=== PATIENT | male | born 1965 | race Caucasian/White ===

== ENCOUNTER 2017-07-02 16:14 | Inpatient (IN) | payer MEDICARE, BC ==
[~2017-07-02] VITALS: Ht 172.7 cm; Wt 78.9 kg
[2017-07-02] VITALS (11 sets, daily range): BP systolic 138–225; BP diastolic 73–94
[~2017-07-02 16:14] MED LIST: CADUET 10 MG-21 EACH PO; HYDRALAZINE 10M10 MG PO; LANTUS SUBQ; NEPHROCAPS SOFT1 CAP PO; NEXIUM40 MG PO; NOVOLOG100 UNIT/1 SUBQ; PHOSLO667 M1 PO
[2017-07-02] MEDS ORDERED: COZAAR 25 MG TA25 M1 PO (16:26)
[2017-07-02] MEDS ORDERED: ASPIR 8181 MG PO (16:26)
[2017-07-02] MEDS ORDERED: NEPHRO-VITE RX1 TA1 PO (16:27)
[2017-07-02] MEDS ORDERED: ATORVASTATIN CA40 MG PO (16:27)
[2017-07-02] MEDS ORDERED: NEXIUM40 MG PO (16:27)
[2017-07-02] MEDS ORDERED: CLONIDINE HCL0.3 M3 PO (16:27)
[2017-07-02] MEDS ORDERED: HUMALOG100 UNIT/2 SUBQ (16:28)
[2017-07-02] MEDS ORDERED: GABAPENTIN 100100 MG PO (16:28)
[2017-07-02] MEDS ORDERED: LOPERAMIDE 2 MG2 M1 PO (16:28)
[2017-07-02] MEDS ORDERED: PHOSLO667 MG PO (16:28)
[2017-07-02] MEDS ORDERED: COREG12.5 MG PO (16:28)
[2017-07-02] MEDS ORDERED: LANTUS100 UNIT/M SUBQ (16:29)
[2017-07-02] MEDS ORDERED: PLAVIX 300 MG300 M1 PO (16:29)
[2017-07-02 16:49] LABS: HEMATOCRIT 40.1 % (42.0-52.0); HEMOGLOBIN 12.7 gm/dL (14.0-18.0); MCH 31.6 pg (26.0-34.0); MCHC 31.8 g/dL (28.0-37.0); MCV 99.3 fL (80.0-100.0); MPV 9.3 fl. (7.2-11.1); NUCLEATED RBCS 0 /100WBC; PLATELET COUNT* 280 thou/uL (150-400); RBC 4.03 mil/uL (4.50-6.00); RDW-CV 17.5 % (10.5-14.5); WBC 13.4 thou/uL (4.0-11.0)
[2017-07-02 17:01] LABS: ALBUMIN 3.8 g/dL (3.4-5.0); CALCIUM 7.6 mg/dL (8.5-10.1); CREATININE 8.6 mg/dL (0.6-1.3); TOTAL BILIRUBIN 0.7 mg/dL (<0.1-1.0); TOTAL PROTEIN 8.3 g/dL (6.4-8.2)
[2017-07-02 17:13] LABS: POTASSIUM 6.5 mmol/L (3.5-5.1)
[2017-07-02 17:26] LABS: ABSOLUTE EOSINOPHILS 0.1 thou/uL (0.0-0.7); ABSOLUTE LYMPHOCYTES 1.9 thou/uL (0.8-5.3); ABSOLUTE MONOCYTES 1.5 thou/uL (0.0-1.2); ABSOLUTE NEUTROPHILS 9.9 thou/uL (1.6-8.1); ANISOCYTOSIS 1+; PLATELET ESTIMATE ADEQUATE
[2017-07-02 18:01] LABS: BE -1.4 mmol/L (-2 to +3); HCO3 24.6 mmol/L (22.0-26.0); PCO2 46.2 mmHg (35.0-45.0); pH 7.344 (7.340-7.450)
[2017-07-02 18:04] LABS: PO2 52.6 mmHg (75.0-100.0)
[2017-07-03] VITALS (21 sets, daily range): BP systolic 98–173; BP diastolic 57–89
[2017-07-03 04:34] LABS: HEMATOCRIT 35.7 % (42.0-52.0); MCH 30.6 pg (26.0-34.0); MCHC 33.6 g/dL (28.0-37.0); MPV 8.3 fl. (7.2-11.1); RBC 3.92 mil/uL (4.50-6.00); RDW-CV 16.7 % (10.5-14.5); WBC 16.2 thou/uL (4.0-11.0)
[2017-07-03 04:51] LABS: ALBUMIN 3.3 g/dL (3.4-5.0); CALCIUM 6.8 mg/dL (8.5-10.1); CREATININE 9.1 mg/dL (0.6-1.3); MAGNESIUM 2.2 mg/dL (1.8-2.4); TOTAL BILIRUBIN 0.5 mg/dL (<0.1-1.0); TOTAL PROTEIN 6.8 g/dL (6.4-8.2)
[2017-07-03 04:59] LABS: POTASSIUM 4.1 mmol/L (3.5-5.1)
--- NOTE | 2017-07-03 12:24 | EKG ---
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 : 1965 Requested By: Gisselle Bazzi Order Number: [id number] MD: Jeremiah Rasmussen Measurements Intervals [place] Rate: 108 P: 138 NE: 180 QRS: -10 QRSD: 113 T: 31 QT: 372 QTc: 499 Interpretive Statements Sinus or ectopic atrial tachycardia Left atrial enlargement Borderline intraventricular conduction delay Low voltage, extremity leads Nonspecific repol abnormality, diffuse leads Baseline wander in lead(s) I,II,aVR No previous ECG available for comparison Electronically Signed On 07-03-2017 12:24:40 COMBINATION MAN by Jeremiah Rasmussen [email or web address] <ELECTRONICALLY SIGNED> By: Jeremiah Rasmussen MD, FAC 07/03/17 1224 1713 1713 Jeremiah Rasmussen MD, [facility] /EPI
--- NOTE | 2017-07-03 16:53 | CON ---
[address] [address] CONSULTATION Name: ELIZABETH LOZA Room: [address] IN [facility]#: [id number] Admission: 07/02/17 Attend Phys: Dc Jernigan, Discharge: Date of : 65 Report #: [id number] THIS REPORT FOR: //name// CC: FAM physician/PCP Dc Jernigan DATE OF SERVICE: 07/03/2017 CONSULTING PHYSICIAN: Dr. Jernigan. REASON FOR CONSULTATION: End-stage renal disease for hemodialysis. REASON FOR ADMISSION: Very high blood glucose. HISTORY OF PRESENT ILLNESS: This is a pleasant 52-year-old male who has past medical history of end-stage renal disease, on hemodialysis Tuesday, Tuesday and Tuesday at [facility]; type diabetic; hypertension and other medical problems, who ran out of his insulin needles 1 day prior to admission and hence his blood glucose was very high. His blood glucose was running at 900s and his potassium was 6.5. He was started on insulin drip and his blood glucose was better this morning and it is running in 200s and his potassium has come down to 4.1. The patient received his last dialysis on Tuesday and will be due for dialysis tomorrow. Currently, he is resting, feels better, in no acute distress at all. REVIEW OF SYSTEMS: The patient's blood glucose is running very high and patient was feeling weak, but currently he is feeling better. Otherwise, 10-point review of systems is negative. PAST MEDICAL HISTORY AND PAST SURGICAL HISTORY: Includes: 1. Type diabetes mellitus. 2. Hyperlipidemia. 3. Tobacco dependency. 4. Hypertension. 5. End-stage renal disease, on hemodialysis every Tuesday, Tuesday, Tuesday. 6. Right upper extremity revision with a PTFE graft. CURRENT HOME MEDICATIONS: Reviewed. CURRENT MEDICATIONS: Reviewed. ALLERGIES: Reviewed. FAMILY HISTORY: Noncontributory. SOCIAL HISTORY: No history of alcohol use, recreational use [place] [address] CONSULTATION Name: ELIZABETH LOZA Room: [address]#: [id number] Admission: 07/02/17 Attend Phys: Dc Jernigan, Discharge: Date of : 65 Report #: [id number] use or smoking. PHYSICAL EXAMINATION: VITAL SIGNS: Blood pressure is 161/81, pulse ox is 92% on 2 liters nasal cannula. Respiratory rate is 16, pulse rate is 88, temperature 36.7. GENERAL: He is awake and alert and oriented x 3, no acute distress. HEAD, EYES, EARS, NOSE AND THROAT: Mucous membranes are moist. NECK: No JVD. LUNGS: Clear to auscultation bilaterally. No crackles or wheezing. CARDIOVASCULAR: S1, S2 normal; no murmurs. ABDOMEN: Soft, nontender, nondistended. Bowel sounds are present. EXTREMITIES: Symmetrical extremities, no edema. Right upper arm AV graft has a good bruit and good thrill. NEUROLOGIC FUNCTION: Gross neurologic function is intact. PSYCHIATRIC: Mood and affect seems to be normal. LABORATORY DATA: Hemoglobin is 12.0, WBC 16.2. Sodium 136, potassium 4.1. BUN 52. Other labs were reviewed. IMAGING: Chest x-ray, abdominal CT were reviewed. ASSESSMENT: 1. End-stage renal disease, on hemodialysis. 2. Hypertension. 3. Hyperglycemia hyperosmolar nonketotic coma. 4. Bilateral multiple cysts. 5. Multiple renal cysts. PLAN: The patient will be dialyzed according to Tuesday, Tuesday, Tuesday schedule. He will be scheduled for dialysis tomorrow. No acute need for dialysis today. Blood pressure should be better controlled after resuming home medications. Blood glucose is getting better, primary team is managing. 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 Thank you for this consultation. We will continue to follow along with you for his dialysis needs. <ELECTRONICALLY SIGNED> By: Majo Ceron MD 07/03/17 1653 0750 [id number] Ceron MD /nt
[2017-07-04] VITALS (14 sets, daily range): BP systolic 99–143; BP diastolic 50–88
[2017-07-04 03:03] LABS: HEMATOCRIT 34.7 % (42.0-52.0); HEMOGLOBIN 12.1 gm/dL (14.0-18.0); MCHC 34.8 g/dL (28.0-37.0); MCV 91.9 fL (80.0-100.0); MPV 8.3 fl. (7.2-11.1); RBC 3.77 mil/uL (4.50-6.00); RDW-CV 17.1 % (10.5-14.5); WBC 16.9 thou/uL (4.0-11.0)
[2017-07-04 03:14] LABS: ALBUMIN 2.8 g/dL (3.4-5.0); CALCIUM 6.3 mg/dL (8.5-10.1); POTASSIUM 4.5 mmol/L (3.5-5.1); TOTAL BILIRUBIN 0.7 mg/dL (<0.1-1.0); TOTAL PROTEIN 6.5 g/dL (6.4-8.2)
[2017-07-05 00:07] VITALS: BP 91/55
[2017-07-05 04:05] VITALS: BP 117/60
[2017-07-05 08:00] VITALS: BP 144/84
[2017-07-05 13:30] VITALS: BP 119/72
[2017-07-05 16:00] VITALS: BP 134/70
--- NOTE | 2017-07-05 18:21 | CON ---
[address] [address] CONSULTATION Name: ELIZABETH LOZA Room: [address] IN [facility]#: [id number] Admission: 07/02/17 Attend Phys: Dc Jernigan, Discharge: Date of : 65 Report #: [id number] THIS REPORT FOR: //name// CC: RADHA physician/PCP Dc Jernigan DICTATED BY: Gena VALDES DATE OF SERVICE: 07/04/2017 REASON FOR CONSULTATION: Left foot wound. HISTORY OF PRESENT ILLNESS: The patient is a pleasant 52-year-old male who is well known to our practice with a history of end-stage renal disease as well as peripheral artery disease. He has end-stage renal disease and is on chronic hemodialysis via a right upper extremity arteriovenous graft. He had a fistula created in [address] Danish Crocker. His fistula was revised to a graft in June [address] Kim. He last underwent a fistulogram in August [address] Gupta. He reports he has been dialyzing well since that time, denies any difficulty with access, but he does report some occasional right handed numbness that seems to continue to worsen. He was admitted to the hospital this admission with complaints of nausea, vomiting as well as bleeding from his left foot. He is a type 1 diabetic, had ran out of his insulin needles, so had not taken any of his insulin. Currently, he complains of lower abdominal pain that he describes as across the bilateral lower quadrants. He does complain of some pain in the left heel. He reports he developed some callus with a small wound over the last couple of weeks. He does have a history of bilateral transmetatarsal amputations by an orthopedic surgeon at [facility]. He also reports a history of a right lower extremity revascularization also at [facility]. He was discharged from the wound center at [place] in 2015, states he has not followed up at [facility] since that time. We have been asked to evaluate the patient and give our opinion regarding his current left heel wound. He reports he did vomit once earlier today, denies any current nausea or vomiting. PAST MEDICAL HISTORY: 1. Diabetes mellitus, type 1. 2. Hyperlipidemia. 3. Tobaccoism. 4. Hypertension. 5. End-stage renal disease. 6. Hyperlipidemia. 7. Peripheral artery disease. PAST SURGICAL HISTORY: 1. Excision of a sebaceous cyst from the head on 01/20/[address] [place] [address] CONSULTATION Name: ELIZABETH LOZA Room: [address] IN [facility].#: [id number] Admission: 07/02/17 Attend Phys: Dc Jernigan, Discharge: Date of : 65 Report #: [id number] 2. Right upper extremity brachiocephalic arteriovenous fistula creation in September 0308/[address] Crocker. 3. Revision of his fistula to a PTFE graft on 07/25/[address] Kim. 4. Multiple fistulograms, most recently in January 2016. ALLERGIES: No known drug allergies. HOME MEDICATIONS: 1. Caduet 10/20 mg 1 tablet daily. 2. Apresoline 25 mg 3 times daily. 3. Lantus insulin 20 units subcutaneously at bedtime. 4. NovoLog insulin 4 units subcutaneously with meals. 5. Cozaar 25 mg daily. 6. Aspirin 81 mg daily. 7. Nephro-Rdorigue 1 tablet daily. 8. Lipitor 40 mg daily. 9. Nexium 40 mg daily. 10. Clonidine 0.3 mg daily. 11. Coreg 6.25 mg twice daily. 12. Neurontin 100 mg 3 times daily. 13. Humalog per sliding scale. 14. PhosLo 667 mg daily. 15. Imodium 2 mg as needed for diarrhea. 16. Plavix daily. SOCIAL HISTORY: He is a former smoker, denies any alcohol or illicit drug use. FAMILY HISTORY: Significant for diabetes mellitus. REVIEW OF SYSTEMS: A 12-point review of systems has been reviewed and is negative except for the above mentioned in the history of present illness. PHYSICAL EXAMINATION: VITAL SIGNS: Temperature 37.0, heart rate 102, respiratory rate 12, blood pressure 99/63, oxygen saturation 98% on room air. GENERAL: Alert and oriented, in no acute distress. HEENT: Head is normocephalic, atraumatic. NECK: Supple, without jugular venous distention or carotid bruit. HEART: Tachycardia, no murmur noted. CHEST: Lungs are diminished, symmetrical expansion, no distress. ABDOMEN: Hypoactive bowel sounds, mild lower abdominal tenderness. EXTREMITIES: Palpable bilateral radial, femoral and dorsalis pedis pulses, dopplerable bilateral posterior tibialis pulses. He has bilateral well-healed transmetatarsal amputations. There is a small fissure on the medial aspect of the right heel, no periwound erythema noted. There is a callus on the medial aspect of the left heel with some reddish purple discoloration [place] [address] CONSULTATION Name: ELIZABETH LOZA Room: [address] IN [facility]#: [id number] Admission: 07/02/17 Attend Phys: Dc Jernigan, Discharge: Date of : 65 Report #: [id number] This area is exquisitely tender to palpation, no open wound or drainage noted NEUROLOGIC: Alert and oriented with no focal neurologic deficits. LABORATORY DATA: Hemoglobin 12.1, hematocrit 34.7, white blood cell count 16.9, platelets 201. Sodium 133, potassium 4.5, chloride 91, CO2 of 25, BUN 61, creatinine 11, glucose is 197. ASSESSMENT AND PLAN: 1. Diabetic foot wounds. He has a small fissure on the right heel with a callus with concern for developing wound on the left medial heel. We will obtain x-rays of the left heel to evaluate for any bony involvement or any abscess. 2. Peripheral artery disease with a history of right lower extremity revascularization. He has strong palpable bilateral dorsalis pedis pulses with dopplerable posterior tibialis pulses. No revascularization is currently indicated. 3. Hyperglycemia in the environment of diabetes mellitus, he had not been taking his insulin prior to his admission as he ran out of syringes. 4. Abdominal pain. Gastroenterology is following. 5. End-stage renal disease, on chronic hemodialysis on Mondays, Wednesdays and Fridays via his right upper extremity arteriovenous graft. He does report some numbness in the right hand. 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 His hand is pink, warm, neuromotor intact. He may benefit from a fistulogram at a later date. We thank you for the opportunity to participate in the care of the patient. Please feel free to contact our office with any questions or concerns. <ELECTRONICALLY SIGNED> By: Ramy Tracy MD 07/05/17 1821 1610 2014Ramy Tracy MD /nt
[2017-07-05 20:00] VITALS: BP 130/70
[2017-07-06 03:00] VITALS: BP 173/75
[2017-07-06 03:47] LABS: ALBUMIN 3.1 g/dL (3.4-5.0); CALCIUM 6.9 mg/dL (8.5-10.1); CREATININE 10.3 mg/dL (0.6-1.3); MAGNESIUM 2.1 mg/dL (1.8-2.4); TOTAL BILIRUBIN 0.7 mg/dL (<0.1-1.0); TOTAL PROTEIN 6.7 g/dL (6.4-8.2)
[2017-07-06 03:55] LABS: HEMATOCRIT 32.4 % (42.0-52.0); HEMOGLOBIN 10.7 gm/dL (14.0-18.0); MCH 31.2 pg (26.0-34.0); MCHC 33.1 g/dL (28.0-37.0); MCV 94.4 fL (80.0-100.0); MPV 9.5 fl. (7.2-11.1); RBC 3.43 mil/uL (4.50-6.00); RDW-CV 16.7 % (10.5-14.5)
[2017-07-06 04:10] LABS: POTASSIUM 6.6 mmol/L (3.5-5.1)
[2017-07-06 08:00] VITALS: BP 153/68
--- NOTE | 2017-07-06 10:57 | EKG ---
[place] [address] ELECTROCARDIOGRAM REPORT Name: ELIZABETH LOZA Room: [address] ADM IN [facility].#: [id number] Admission: 07/02/17 Attend Phys: Dc Jernigan, Discharge: Date of : 65 Report #: [id number] THIS REPORT FOR: //name// [facility] Test Date: 2017-07-06 Test Time: 10:18:57 Pat Name: ELIZABETH LOZA Department: Room: [address] Gender: M Head Porter: : 1965 Requested By: Nadine Campo Order Number: [id number] Reading MD: Satish Hurtado Measurements Intervals [place] Rate: 97 P: 60 GA: 169 QRS: -22 QRSD: 105 T: 52 QT: 389 QTc: 494 Interpretive Statements Sinus rhythm Probable left atrial enlargement Borderline left axis deviation Borderline low voltage, extremity leads Borderline prolonged QT interval Compared to ECG 07/02/2017 17:13:58 rate slowed Electronically Signed On 07-06-2017 10:56:52 FLAME HARDENING MACHINE OPERATOR by Satish Hurtado [email or web address] <ELECTRONICALLY SIGNED> By: Satish Hurtado MD, [facility] 07/06/17 1056 1018 1018 Satish Hurtado MD, [facility] /EPI
[2017-07-06 20:00] VITALS: BP 109/63
[2017-07-07 03:55] LABS: HEMATOCRIT 34.9 % (42.0-52.0); HEMOGLOBIN 11.4 gm/dL (14.0-18.0); MCH 30.4 pg (26.0-34.0); MCHC 32.7 g/dL (28.0-37.0); MPV 8.9 fl. (7.2-11.1); RBC 3.75 mil/uL (4.50-6.00); RDW-CV 16.9 % (10.5-14.5)
[2017-07-07 04:39] LABS: ALBUMIN 2.9 g/dL (3.4-5.0); CALCIUM 7.5 mg/dL (8.5-10.1); POTASSIUM 5.2 mmol/L (3.5-5.1); TOTAL BILIRUBIN 0.4 mg/dL (<0.1-1.0); TOTAL PROTEIN 6.7 g/dL (6.4-8.2)
[2017-07-07 04:40] LABS: CREATININE 6.7 mg/dL (0.6-1.3)
[2017-07-07 06:12] VITALS: BP 177/78
[2017-07-07 08:05] VITALS: BP 136/82
[2017-07-07] MEDS ORDERED: TRAMADOL 50 MG50 MG PO (09:39)
[2017-07-07] MEDS ORDERED: NOVOLOG100 UNIT/1 SUBQ (09:39)
[2017-07-07] MEDS ORDERED: REGLAN 10 MG TA10 MG PO (09:39)
[2017-07-07] MEDS ORDERED: COLACE 100 MG100 MG PO (09:39)
[2017-07-07] MEDS ORDERED: HUMALOG100 UNIT/2 SUBQ (09:39)
[2017-07-07] MEDS ORDERED: LANTUS SUBQ (09:39)
[2017-07-07] MEDS ORDERED: MIRALAX17 GM PO (09:39)
[2017-07-07 10:39] VITALS: BP 110/65
[2017-07-07 12:08] VITALS: BP 110/65
[2017-07-07] MEDS ORDERED: PHOSLO667 MG PO (12:18)
[2017-07-07] MEDS ORDERED: LANTUSSOLASTAR SUBQ (12:21)
[2017-07-07 14:46] VITALS: BP 110/65
--- NOTE | 2017-07-07 14:51 | CON ---
[address] [address] CONSULTATION Name: ELIZABETH LOZA Room: [address] IN [facility]#: [id number] Admission: 07/02/17 Attend Phys: Dc Jernigan, Discharge: 07/07/17 Date of : 65 Report #: [id number] THIS REPORT FOR: //name// CC: RADHA physician/PCP Dc Jernigan DATE OF SERVICE: 07/04/2017 ADDENDUM The patient with history of esophagitis and a small hiatal hernia who presents with abdominal pain and leukocytosis. He also has a history of end-stage liver disease and gets dialyzed routinely. We will await the records from [facility], continue to monitor closely and may consider endoscopic evaluation based on the records we receive. <ELECTRONICALLY SIGNED> By: Francia Hillman MD 07/07/17 1451 1526 2103Francia Hillman MD /nt
--- NOTE | 2017-07-07 14:51 | CON ---
[address] [address] CONSULTATION Name: ELIZABETH LOZA Room: [address] IN .#: [id number] Admission: 07/02/17 Attend Phys: Dc Jernigan, Discharge: 07/07/17 Date of : 65 Report #: [id number] THIS REPORT FOR: //name// CC: RADHA physician/PCP Dc Jernigan DICTATED BY: Hannah JUAREZP DATE OF SERVICE: 07/04/2017 The patient does not have a PCP. Please note at the time of this dictation, the patient was seen and physically examined by myself. REASON FOR CONSULTATION: Abdominal pain. HISTORY OF PRESENT ILLNESS: This is a 52-year-old male who presented to the Emergency Room with having left foot bleeding as well as abdominal pain associated with some nausea and vomiting, which he had had ongoing for about 6 hours. The patient is a type 1 diabetic and he ran out of his needles yesterday, so he had not been able to have any insulin. Upon arrival to the ER, the patient's blood sugar was 987. Once that was improved while he was on an insulin drip, his nausea and vomiting subsided; however, he still complains of abdominal discomfort. The patient did have an EGD back in 2014 that showed esophagitis grade A, 2 cm hiatal hernia and he has never noted to have a colonoscopy by us; however, the patient states he has had recent studies done, he thinks at [facility] and we will need to try to obtain. The patient states his bowels go daily, but they are hard and dry and he only goes small amounts at a time. He has not noticed any bright red blood or any melena at this time. ALLERGIES: No known drug allergies. MEDICATIONS: From home include Caduet, Apresoline, Lantus, NovoLog, Cozaar, aspirin, Nephro-Rodrigue, Lipitor, Nexium, clonidine, Coreg, Neurontin, Humalog, PhosLo, Imodium and Plavix. PAST MEDICAL HISTORY: Diabetes, hyperlipidemia, hypertension, end-stage renal disease. PAST SURGICAL HISTORY: Cholecystectomy. FAMILY HISTORY: Negative for any GI or female cancers. SOCIAL HISTORY: Past use of alcohol, no recreational drug use and no tobacco use. REVIEW OF SYSTEMS: Twelve-point review of [place] [address] CONSULTATION Name: ELIZABETH LOZA Room: [address]#: [id number] Admission: 07/02/17 Attend Phys: Dc Jernigan, Discharge: 07/07/17 Date of : 65 Report #: [id number] except what is mentioned in the HPI. PHYSICAL EXAMINATION: VITAL SIGNS: Temperature 36.8, pulse 113, respirations 15, blood pressure 128/80. HEART: Regular rate and rhythm. LUNGS: Clear. ABDOMEN: Soft, positive bowel sounds in all 4 quadrants with diffuse tenderness noted throughout. LABORATORY DATA: Hemoglobin 12.1, hematocrit 34.7, white count is 16.9, platelets is 201. Sodium 133, potassium 4.5, chloride 91, CO2 of 25, BUN 61, creatinine is 11, GFR is nonexistent 7. CT, LFTs were completely normal. CT of the abdomen and pelvis showed diffuse fatty infiltrations, otherwise absent gallbladder. Chest x-ray negative. IMPRESSION: 1. Abdominal pain, generalized. 2. Constipation. 3. Diffuse fatty infiltration of the liver. 4. Leukocytosis. 5. Chronic kidney disease stage 5. Dialysis Tuesday, Tuesday, Tuesday. 6. Diabetic ketoacidosis. 7. Anticoagulant therapy, Plavix. PLAN: 1. Records, [facility]. 2. Abdominal x-ray. 3. Colace b.i.d. 4. If all is negative, consider EGD: Once records have been reviewed. Thank you for allowing us to participate in this patient's care. Please do not hesitate to call with any questions in regard to this consult. <ELECTRONICALLY SIGNED> By: Francia Hillman MD 07/07/17 1451 1202 1231Francia Hillman MD /nt
== END 2017-07-07 14:48 | disposition home or self-care (01) | DRG 637 ==
LOC: M.ERS 16:14 → M.ICU 17:16 → M.ORTHSURG 17:16 → M.TBA-ER 17:16 → M.ICU 18:22 → M.ORTHSURG 07-05 14:17
PROVIDERS: Internal Medicine; Physician Assistant; ADMIT Family Medicine
PROC: 5A1D70Z Performance of Urinary Filtration, Intermittent, Less than 6 Hours Per Day (ICD-10-PCS; principal; 2017-07-04)
DX: E11.00 Type 2 diabetes mellitus with hyperosmolarity without nonketotic hyperglycemic-hyperosmolar coma (NKHHC) (principal); N18.6 End stage renal disease; I12.0 Hypertensive chronic kidney disease with stage 5 chronic kidney disease or end stage renal disease; I16.1 Hypertensive emergency; E87.1 Hypo-osmolality and hyponatremia; E78.5 Hyperlipidemia, unspecified; E11.22 Type 2 diabetes mellitus with diabetic chronic kidney disease; N28.1 Cyst of kidney, acquired; K59.00 Constipation, unspecified; E11.51 Type 2 diabetes mellitus with diabetic peripheral angiopathy without gangrene; F17.210 Nicotine dependence, cigarettes, uncomplicated; K02.9 Dental caries, unspecified; K76.0 Fatty (change of) liver, not elsewhere classified; E83.51 Hypocalcemia; E87.5 Hyperkalemia; Z99.2 Dependence on renal dialysis; Z79.4 Long term (current) use of insulin; Z79.899 Other long term (current) drug therapy; Z90.49 Acquired absence of other specified parts of digestive tract; Z79.01 Long term (current) use of anticoagulants; Z83.3 Family history of diabetes mellitus; Z91.19 Patient's noncompliance with other medical treatment and regimen

== ENCOUNTER → 2017-07-14 | Outpatient (CLI) | payer MEDICARE, BC ==
[~2017-07-14] MED LIST changes: +ASPIR 8181 MG PO; +ATORVASTATIN CA40 MG PO; +AZO STANDARD95 MG PO; +CLONIDINE HCL0.3 M3 PO; +COLACE 100 MG100 MG PO; +COREG12.5 MG PO; +COZAAR 25 MG TA25 M1 PO; +GABAPENTIN 100100 MG PO; +HUMALOG100 UNIT/2 SUBQ; +HYDROCODONE-AP1 EAC6 PO; +LANTUS100 UNIT/M SUBQ; +LANTUSSOLASTAR SUBQ; +LOPERAMIDE 2 MG2 M1 PO; +MIRALAX17 GM PO; +NEPHRO-VITE RX1 TA1 PO; +PERCOCET 10-321 EACH PO; +PHOSLO667 MG PO; +PLAVIX 300 MG300 M1 PO; +REGLAN 10 MG TA10 MG PO; +TRAMADOL 50 MG50 MG PO; +ZOFRAN ODT4 MG DISSOLVE; +ZPAK PO
== END ==
LOC: M.WC 08:00
DX: E11.621 Type 2 diabetes mellitus with foot ulcer (principal); L97.421 Non-pressure chronic ulcer of left heel and midfoot limited to breakdown of skin; E11.51 Type 2 diabetes mellitus with diabetic peripheral angiopathy without gangrene; E11.22 Type 2 diabetes mellitus with diabetic chronic kidney disease; I12.0 Hypertensive chronic kidney disease with stage 5 chronic kidney disease or end stage renal disease; N18.6 End stage renal disease; E78.2 Mixed hyperlipidemia; E78.5 Hyperlipidemia, unspecified; K21.9 Gastro-esophageal reflux disease without esophagitis; Z87.891 Personal history of nicotine dependence

== ENCOUNTER → 2017-07-21 | Outpatient (CLI) | payer MEDICARE, BC | LOC: M.WC 03:53 | DX: E11.621 Type 2 diabetes mellitus with foot ulcer (principal); L97.421 Non-pressure chronic ulcer of left heel and midfoot limited to breakdown of skin; E11.51 Type 2 diabetes mellitus with diabetic peripheral angiopathy without gangrene; E11.22 Type 2 diabetes mellitus with diabetic chronic kidney disease; I12.0 Hypertensive chronic kidney disease with stage 5 chronic kidney disease or end stage renal disease; N18.6 End stage renal disease; E78.2 Mixed hyperlipidemia; L84 Corns and callosities; K21.9 Gastro-esophageal reflux disease without esophagitis; Z68.33 Body mass index [BMI] 33.0-33.9, adult; Z87.891 Personal history of nicotine dependence ==

== ENCOUNTER → 2017-07-28 | Outpatient (CLI) | payer MEDICARE, BC | LOC: M.WC 01:22 | DX: E11.621 Type 2 diabetes mellitus with foot ulcer (principal); L97.421 Non-pressure chronic ulcer of left heel and midfoot limited to breakdown of skin; E11.51 Type 2 diabetes mellitus with diabetic peripheral angiopathy without gangrene; E78.2 Mixed hyperlipidemia; K21.9 Gastro-esophageal reflux disease without esophagitis; Z68.33 Body mass index [BMI] 33.0-33.9, adult; E11.22 Type 2 diabetes mellitus with diabetic chronic kidney disease; I12.0 Hypertensive chronic kidney disease with stage 5 chronic kidney disease or end stage renal disease; N18.6 End stage renal disease; Z99.2 Dependence on renal dialysis; Z87.891 Personal history of nicotine dependence ==

== ENCOUNTER → 2017-08-04 | Outpatient (CLI) | payer MEDICARE, BC | LOC: M.WC 01:36 | DX: E11.621 Type 2 diabetes mellitus with foot ulcer (principal); L97.421 Non-pressure chronic ulcer of left heel and midfoot limited to breakdown of skin; E11.51 Type 2 diabetes mellitus with diabetic peripheral angiopathy without gangrene; E78.2 Mixed hyperlipidemia; K21.9 Gastro-esophageal reflux disease without esophagitis; Z68.33 Body mass index [BMI] 33.0-33.9, adult; E11.22 Type 2 diabetes mellitus with diabetic chronic kidney disease; I12.0 Hypertensive chronic kidney disease with stage 5 chronic kidney disease or end stage renal disease; N18.6 End stage renal disease; Z99.2 Dependence on renal dialysis; Z87.891 Personal history of nicotine dependence ==

== ENCOUNTER → 2017-08-11 | Outpatient (CLI) | payer MEDICARE, BC | LOC: M.WC 01:31 | DX: E11.621 Type 2 diabetes mellitus with foot ulcer (principal); L97.521 Non-pressure chronic ulcer of other part of left foot limited to breakdown of skin; E11.51 Type 2 diabetes mellitus with diabetic peripheral angiopathy without gangrene; E11.22 Type 2 diabetes mellitus with diabetic chronic kidney disease; I12.0 Hypertensive chronic kidney disease with stage 5 chronic kidney disease or end stage renal disease; N18.6 End stage renal disease; E78.2 Mixed hyperlipidemia; K21.9 Gastro-esophageal reflux disease without esophagitis; Z68.33 Body mass index [BMI] 33.0-33.9, adult; Z87.891 Personal history of nicotine dependence ==

== ENCOUNTER → 2017-08-18 | Outpatient (CLI) | payer MEDICARE, BC ==
[2017-08-18 10:33] LABS: HEMATOCRIT 37.4 % (42.0-52.0); HEMOGLOBIN 12.8 gm/dL (14.0-18.0); MCH 31.4 pg (26.0-34.0); MCHC 34.2 g/dL (28.0-37.0); MPV 8.4 fl. (7.2-11.1); RBC 4.06 mil/uL (4.50-6.00); RDW-CV 16.3 % (10.5-14.5); WBC 10.6 thou/uL (4.0-11.0)
[2017-08-18 10:43] LABS: ALBUMIN 3.7 g/dL (3.4-5.0); CALCIUM 8.9 mg/dL (8.5-10.1); CREATININE 7.5 mg/dL (0.6-1.3); POTASSIUM 4.8 mmol/L (3.5-5.1); TOTAL BILIRUBIN 0.4 mg/dL (<0.1-1.0); TOTAL PROTEIN 8.2 g/dL (6.4-8.2)
[2017-08-19 02:10] LABS: GLYCOHEMOGLOBIN (HGB A1C) 7.2 % (4.8-5.6)
== END ==
LOC: M.WC 03:29
PROVIDERS: Family Medicine
DX: E11.621 Type 2 diabetes mellitus with foot ulcer (principal); L97.421 Non-pressure chronic ulcer of left heel and midfoot limited to breakdown of skin; E11.51 Type 2 diabetes mellitus with diabetic peripheral angiopathy without gangrene; E78.2 Mixed hyperlipidemia; K21.9 Gastro-esophageal reflux disease without esophagitis; Z68.33 Body mass index [BMI] 33.0-33.9, adult; E11.22 Type 2 diabetes mellitus with diabetic chronic kidney disease; I12.0 Hypertensive chronic kidney disease with stage 5 chronic kidney disease or end stage renal disease; N18.6 End stage renal disease; Z99.2 Dependence on renal dialysis; Z87.891 Personal history of nicotine dependence

== ENCOUNTER → 2017-08-25 | Outpatient (CLI) | payer MEDICARE, BC | LOC: M.WC 01:50 | DX: E11.621 Type 2 diabetes mellitus with foot ulcer (principal); L97.421 Non-pressure chronic ulcer of left heel and midfoot limited to breakdown of skin; E11.51 Type 2 diabetes mellitus with diabetic peripheral angiopathy without gangrene; K21.9 Gastro-esophageal reflux disease without esophagitis; E78.2 Mixed hyperlipidemia; E11.22 Type 2 diabetes mellitus with diabetic chronic kidney disease; I12.0 Hypertensive chronic kidney disease with stage 5 chronic kidney disease or end stage renal disease; N18.6 End stage renal disease; Z99.2 Dependence on renal dialysis; Z68.33 Body mass index [BMI] 33.0-33.9, adult; Z87.891 Personal history of nicotine dependence ==

== ENCOUNTER → 2017-09-02 | Outpatient (CLI) | payer MEDICARE, BC | LOC: M.WC 09-01 02:30 | DX: E11.621 Type 2 diabetes mellitus with foot ulcer (principal); L97.421 Non-pressure chronic ulcer of left heel and midfoot limited to breakdown of skin; E11.51 Type 2 diabetes mellitus with diabetic peripheral angiopathy without gangrene; E78.2 Mixed hyperlipidemia; K21.9 Gastro-esophageal reflux disease without esophagitis; E11.22 Type 2 diabetes mellitus with diabetic chronic kidney disease; I12.0 Hypertensive chronic kidney disease with stage 5 chronic kidney disease or end stage renal disease; N18.6 End stage renal disease; Z68.33 Body mass index [BMI] 33.0-33.9, adult; Z99.2 Dependence on renal dialysis; Z87.891 Personal history of nicotine dependence ==

== ENCOUNTER → 2017-09-08 | Outpatient (CLI) | payer MEDICARE, BC | LOC: M.WC 01:30 | DX: E11.621 Type 2 diabetes mellitus with foot ulcer (principal); L97.421 Non-pressure chronic ulcer of left heel and midfoot limited to breakdown of skin; E11.51 Type 2 diabetes mellitus with diabetic peripheral angiopathy without gangrene; E11.22 Type 2 diabetes mellitus with diabetic chronic kidney disease; I12.0 Hypertensive chronic kidney disease with stage 5 chronic kidney disease or end stage renal disease; N18.6 End stage renal disease; K21.9 Gastro-esophageal reflux disease without esophagitis; E78.2 Mixed hyperlipidemia; Z68.33 Body mass index [BMI] 33.0-33.9, adult; Z87.891 Personal history of nicotine dependence ==

== ENCOUNTER → 2017-09-15 | Outpatient (CLI) | payer MEDICARE, BC | LOC: M.WC 04:59 | DX: E11.621 Type 2 diabetes mellitus with foot ulcer (principal); L97.421 Non-pressure chronic ulcer of left heel and midfoot limited to breakdown of skin; E11.51 Type 2 diabetes mellitus with diabetic peripheral angiopathy without gangrene; E78.2 Mixed hyperlipidemia; K21.9 Gastro-esophageal reflux disease without esophagitis; E11.22 Type 2 diabetes mellitus with diabetic chronic kidney disease; I12.0 Hypertensive chronic kidney disease with stage 5 chronic kidney disease or end stage renal disease; N18.6 End stage renal disease; Z99.2 Dependence on renal dialysis; Z68.33 Body mass index [BMI] 33.0-33.9, adult; Z87.891 Personal history of nicotine dependence ==

== ENCOUNTER → 2017-09-22 | Outpatient (CLI) | payer MEDICARE, BC | LOC: M.WC 04:37 | DX: E11.621 Type 2 diabetes mellitus with foot ulcer (principal); L97.421 Non-pressure chronic ulcer of left heel and midfoot limited to breakdown of skin; E11.51 Type 2 diabetes mellitus with diabetic peripheral angiopathy without gangrene; E78.2 Mixed hyperlipidemia; K21.9 Gastro-esophageal reflux disease without esophagitis; E11.22 Type 2 diabetes mellitus with diabetic chronic kidney disease; I12.0 Hypertensive chronic kidney disease with stage 5 chronic kidney disease or end stage renal disease; N18.6 End stage renal disease; Z99.2 Dependence on renal dialysis; Z68.33 Body mass index [BMI] 33.0-33.9, adult; Z87.891 Personal history of nicotine dependence; Z89.422 Acquired absence of other left toe(s); Z89.421 Acquired absence of other right toe(s) ==

== ENCOUNTER → 2017-09-29 | Outpatient (CLI) | payer MEDICARE, BC | LOC: M.WC 00:56 | DX: E11.621 Type 2 diabetes mellitus with foot ulcer (principal); L97.421 Non-pressure chronic ulcer of left heel and midfoot limited to breakdown of skin; E11.51 Type 2 diabetes mellitus with diabetic peripheral angiopathy without gangrene; E11.22 Type 2 diabetes mellitus with diabetic chronic kidney disease; I12.0 Hypertensive chronic kidney disease with stage 5 chronic kidney disease or end stage renal disease; N18.6 End stage renal disease; E78.2 Mixed hyperlipidemia; K21.9 Gastro-esophageal reflux disease without esophagitis; L84 Corns and callosities; Z87.891 Personal history of nicotine dependence; Z68.33 Body mass index [BMI] 33.0-33.9, adult ==

== ENCOUNTER → 2017-10-06 | Outpatient (CLI) | payer MEDICARE, BC | LOC: M.WC 02:22 | DX: E11.621 Type 2 diabetes mellitus with foot ulcer (principal); L97.421 Non-pressure chronic ulcer of left heel and midfoot limited to breakdown of skin; E11.51 Type 2 diabetes mellitus with diabetic peripheral angiopathy without gangrene; E11.22 Type 2 diabetes mellitus with diabetic chronic kidney disease; I12.0 Hypertensive chronic kidney disease with stage 5 chronic kidney disease or end stage renal disease; N18.6 End stage renal disease; L84 Corns and callosities; E78.2 Mixed hyperlipidemia; K21.9 Gastro-esophageal reflux disease without esophagitis; Z68.33 Body mass index [BMI] 33.0-33.9, adult; Z87.891 Personal history of nicotine dependence ==

== ENCOUNTER → 2017-10-13 | Outpatient (CLI) | payer MEDICARE, BC | LOC: M.WC 01:04 | DX: E11.621 Type 2 diabetes mellitus with foot ulcer (principal); L97.421 Non-pressure chronic ulcer of left heel and midfoot limited to breakdown of skin; E11.51 Type 2 diabetes mellitus with diabetic peripheral angiopathy without gangrene; E78.2 Mixed hyperlipidemia; K21.9 Gastro-esophageal reflux disease without esophagitis; E11.22 Type 2 diabetes mellitus with diabetic chronic kidney disease; I12.0 Hypertensive chronic kidney disease with stage 5 chronic kidney disease or end stage renal disease; N18.6 End stage renal disease; Z99.2 Dependence on renal dialysis; Z87.891 Personal history of nicotine dependence; Z68.33 Body mass index [BMI] 33.0-33.9, adult ==

== ENCOUNTER → 2017-10-20 | Outpatient (CLI) | payer MEDICARE, BC | LOC: M.WC 03:53 | DX: E11.621 Type 2 diabetes mellitus with foot ulcer (principal); L97.421 Non-pressure chronic ulcer of left heel and midfoot limited to breakdown of skin; E11.51 Type 2 diabetes mellitus with diabetic peripheral angiopathy without gangrene; E11.22 Type 2 diabetes mellitus with diabetic chronic kidney disease; I12.0 Hypertensive chronic kidney disease with stage 5 chronic kidney disease or end stage renal disease; N18.6 End stage renal disease; K21.9 Gastro-esophageal reflux disease without esophagitis; E78.5 Hyperlipidemia, unspecified; Z87.891 Personal history of nicotine dependence; Z68.33 Body mass index [BMI] 33.0-33.9, adult ==

== ENCOUNTER → 2017-10-27 | Outpatient (CLI) | payer MEDICARE, BC | LOC: M.WC 03:21 | DX: E11.621 Type 2 diabetes mellitus with foot ulcer (principal); L97.421 Non-pressure chronic ulcer of left heel and midfoot limited to breakdown of skin; E11.51 Type 2 diabetes mellitus with diabetic peripheral angiopathy without gangrene; E78.2 Mixed hyperlipidemia; K21.9 Gastro-esophageal reflux disease without esophagitis; E11.22 Type 2 diabetes mellitus with diabetic chronic kidney disease; I12.0 Hypertensive chronic kidney disease with stage 5 chronic kidney disease or end stage renal disease; N18.6 End stage renal disease; Z99.2 Dependence on renal dialysis; Z68.33 Body mass index [BMI] 33.0-33.9, adult; Z87.891 Personal history of nicotine dependence ==

== ENCOUNTER 2017-11-25 19:31 | Emergency (ER) | payer MEDICARE, BC ==
[~2017-11-25] VITALS: Ht 172.7 cm; Wt 72.6 kg
[~2017-11-25 19:31] MED LIST changes: -AZO STANDARD95 MG PO; -HYDROCODONE-AP1 EAC6 PO; -PERCOCET 10-321 EACH PO; -ZOFRAN ODT4 MG DISSOLVE; -ZPAK PO
[2017-11-25] MEDS ORDERED: AZO STANDARD95 MG PO (20:19)
[2017-11-25] MEDS ORDERED: PERCOCET 10-321 EACH PO (20:22)
[2017-11-25 20:49] VITALS: BP 130/78
== END 2017-11-25 20:50 | disposition home or self-care (01) ==
LOC: M.ERS 19:31
DX: N32.89 Other specified disorders of bladder (principal); E78.5 Hyperlipidemia, unspecified; I12.0 Hypertensive chronic kidney disease with stage 5 chronic kidney disease or end stage renal disease; E11.22 Type 2 diabetes mellitus with diabetic chronic kidney disease; N18.6 End stage renal disease; F17.200 Nicotine dependence, unspecified, uncomplicated; Z99.2 Dependence on renal dialysis; Z79.4 Long term (current) use of insulin; Z85.51 Personal history of malignant neoplasm of bladder

== ENCOUNTER 2018-01-07 15:27 | Inpatient (IN) | payer MEDICARE, BC ==
[~2018-01-07] VITALS: Ht 152.4 cm; Wt 77.1 kg
[2018-01-07] VITALS (9 sets, daily range): BP systolic 126–166; BP diastolic 51–86
--- NOTE | ~2018-01-07 | CON ---
[address] [address] CONSULTATION Name: ELIZABETH LOZA Room: [address] IN [facility].#: [id number] Admission: 01/07/18 Attend Phys: Dc Jernigan, Discharge: Date of : 65 Report #: [id number] THIS REPORT FOR: //name// CC: RADHA physician/PCP Dc Jernigan REASON FOR CONSULTATION: End-stage renal disease. HISTORY OF PRESENT ILLNESS: The patient is a 52-year-old male with history of end-stage renal disease, on hemodialysis on Tuesday, Tuesday, Tuesday schedule using right upper extremity AV fistula at [facility], history of essential hypertension, diabetes mellitus type 2, admitted after he presented with lower abdominal pain, which was rated as 8/10 x 1 day duration. No other associated symptoms. Denies any nausea, vomiting or diarrhea with his abdominal pain. No fever or chills. Found to have elevated blood glucose levels and currently in the ICU with insulin drip. We are consulted to assist with management of his electrolyte abnormalities and end-stage renal disease. Of note, he has history of recently diagnosed bladder cancer for which he had surgery done. PAST MEDICAL HISTORY: As mentioned above. In addition, he has history of type 2 diabetes, hyperlipidemia, tobacco dependency, essential hypertension, ESRD, on dialysis; history of bladder cancer as mentioned above and right upper extremity AV graft. SOCIAL HISTORY: No smoking, alcohol or illicit drug use. FAMILY HISTORY: No family history of end-stage renal disease. ALLERGIES: The patient is not allergic to any medications. REVIEW OF SYSTEMS: Twelve-point review of systems was done and pertinent positives are mentioned in the history of present illness. All other systems are negative. PHYSICAL EXAMINATION: VITAL SIGNS: He has blood pressure of 166/86, pulse rate of 110, respiratory rate of 18, temperature of 36.4, oxygen saturation is 99% on room air. GENERAL: He appears in no respiratory distress at this time. [place] conjunctivae and anicteric sclerae. HEENT: Normocephalic, atraumatic head. Pupils are equal, reactive to light. External ocular muscles are intact. NECK: No JVD. Trachea midline. LUNGS: Sounds are clear to auscultation bilaterally. No wheezing. ABDOMEN: Soft, nontender. He said that he had some tenderness yesterday. No rebound. Has positive bowel sounds. SKIN: Warm and dry. EXTREMITIES: Showed no edema. He has right [place] [address] CONSULTATION Name: ELIZABETH LOZA Room: [address]#: [id number] Admission: 01/07/18 Attend Phys: Dc Jernigan, Discharge: Date of : 65 Report #: [id number] positive thrill. NEUROLOGIC: He is alert, oriented and nonfocal. IMPRESSION: 1. End-stage renal disease on hemodialysis Tuesday, Tuesday, Tuesday schedule at [facility]. 2. Right upper extremity AV fistula. 3. Essential hypertension. 4. Diabetes mellitus type 2. 5. Hyperglycemia. 6. History of bladder cancer, status post tumor resection recently. 7. Anemia of chronic illness. 8. Leukocytosis. 9. Hyperkalemia. PLAN: Hemodialysis arrangement is made for today. We will correct hyperkalemia on dialysis. Ultrafiltration as hemodynamics allow. No Epogen as his hemoglobin is over 11. Management of hyperglycemia per primary team. Once again, thank you for the consult. By: 1136 2140Brinda Cevallos MD /nt
[~2018-01-07 15:27] MED LIST changes: +AZO STANDARD95 MG PO; +PERCOCET 10-321 EACH PO
[2018-01-07 15:58] LABS: ABSOLUTE BASOPHILS 0.1 thou/uL (0.0-0.2); ABSOLUTE EOSINOPHILS 0.3 thou/uL (0.0-0.7); ABSOLUTE LYMPHOCYTES 1.6 thou/uL (0.8-5.3); ABSOLUTE MONOCYTES 0.8 thou/uL (0.0-1.2); ABSOLUTE NEUTROPHILS 9.6 thou/uL (1.6-8.1); BASOPHILS 0.9 %; EOSINOPHILS 2.3 %; HEMATOCRIT 38.8 % (42.0-52.0); HEMOGLOBIN 12.8 gm/dL (14.0-18.0); LYMPHOCYTES 12.9 %; MCH 32.8 pg (26.0-34.0); MCHC 32.9 g/dL (28.0-37.0); MCV 99.7 fL (80.0-100.0); MONOCYTES 6.8 %; MPV 8.8 fl. (7.2-11.1); NUCLEATED RBCS 0 /100WBC; PLATELET COUNT* 265 thou/uL (150-400); POLYS 77.1 %; RBC 3.89 mil/uL (4.50-6.00); RDW-CV 16.7 % (10.5-14.5); WBC 12.5 thou/uL (4.0-11.0)
[2018-01-07 16:09] LABS: ANION GAP 9 mmol/L (7-16); BUN 45 mg/dL (7-18); CALCIUM 7.1 mg/dL (8.5-10.1); CHLORIDE 88 mmol/L (98-107); CO2 32 mmol/L (21-32); CREATININE 7.7 mg/dL (0.6-1.3); SODIUM 129 mmol/L (136-145)
[2018-01-07 16:13] LABS: ALBUMIN 3.5 g/dL (3.4-5.0); ALKALINE PHOSPHATASE 55 U/L (46-116); LIPASE 293 U/L (73-393); SGOT 17 U/L (15-37); SGPT 20 U/L (30-65); TOTAL BILIRUBIN 0.4 mg/dL (<0.1-1.0); TOTAL PROTEIN 7.9 g/dL (6.4-8.2); TROPONIN-I LEVEL <0.06 ng/mL (<0.06)
[2018-01-07 16:20] LABS: GLUCOSE 816 mg/dL (70-99)
[2018-01-07 16:59] LABS: BE -0.7 mmol/L (-2 to +3); HCO3 24.1 mmol/L (22.0-26.0); PCO2 40.5 mmHg (35.0-45.0); PO2 66.3 mmHg (75.0-100.0); pH 7.393 (7.340-7.450)
[2018-01-07 22:25] LABS: CALCIUM 6.7 mg/dL (8.5-10.1); CREATININE 8.3 mg/dL (0.6-1.3); MAGNESIUM 2.2 mg/dL (1.8-2.4); PHOSPHORUS* 6.6 mg/dL (2.5-4.9)
[2018-01-07 22:33] LABS: POTASSIUM 4.5 mmol/L (3.5-5.1)
[2018-01-08] VITALS (9 sets, daily range): BP systolic 118–147; BP diastolic 48–79
[2018-01-08 02:26] LABS: HEMATOCRIT 32.8 % (42.0-52.0); MCH 31.9 pg (26.0-34.0); MCHC 33.7 g/dL (28.0-37.0); MPV 8.4 fl. (7.2-11.1); RBC 3.46 mil/uL (4.50-6.00); RDW-CV 15.7 % (10.5-14.5); WBC 11.6 thou/uL (4.0-11.0)
[2018-01-08 02:31] LABS: MCV 94.7 fL (80.0-100.0)
[2018-01-08 02:38] LABS: ALKALINE PHOSPHATASE 43 U/L (46-116); ANION GAP 9 mmol/L (7-16); BUN 59 mg/dL (7-18); CALCIUM 6.8 mg/dL (8.5-10.1); CHLORIDE 94 mmol/L (98-107); CO2 30 mmol/L (21-32); CREATININE 8.1 mg/dL (0.6-1.3); GLUCOSE 103 mg/dL (70-99); MAGNESIUM 2.2 mg/dL (1.8-2.4); PHOSPHORUS* 7.1 mg/dL (2.5-4.9); POTASSIUM 4.5 mmol/L (3.5-5.1); SGOT 15 U/L (15-37); SGPT 17 U/L (30-65); SODIUM 133 mmol/L (136-145); TOTAL BILIRUBIN 0.4 mg/dL (<0.1-1.0); TOTAL PROTEIN 6.6 g/dL (6.4-8.2); TROPONIN-I LEVEL <0.06 ng/mL (<0.06)
[2018-01-08 06:28] LABS: CALCIUM 6.7 mg/dL (8.5-10.1); CREATININE 8.1 mg/dL (0.6-1.3); MAGNESIUM 2.1 mg/dL (1.8-2.4); PHOSPHORUS* 7.9 mg/dL (2.5-4.9); POTASSIUM 5.4 mmol/L (3.5-5.1)
[2018-01-08 10:47] LABS: ALBUMIN 2.9 g/dL (3.4-5.0); CALCIUM 6.6 mg/dL (8.5-10.1); CREATININE 8.6 mg/dL (0.6-1.3); MAGNESIUM 2.1 mg/dL (1.8-2.4); PHOSPHORUS* 7.4 mg/dL (2.5-4.9)
[2018-01-08 10:49] LABS: POTASSIUM 6.2 mmol/L (3.5-5.1)
--- NOTE | 2018-01-08 11:00 | EKG ---
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: Doyle LOPEZ : 1965 Requested By: Eric Waldron Order Number: [id number] MD: Med Degroot Measurements Intervals [place] Rate: 106 P: 64 [place]: 168 QRS: -21 QRSD: 104 T: 53 QT: 359 QTc: 477 Interpretive Statements Sinus tachycardia Probable left atrial enlargement Borderline left axis deviation Borderline low voltage, extremity leads Anteroseptal infarct, old Minimal ST elevation, inferior leads Baseline wander in lead(s) V5 Compared to ECG 07/06/2017 10:18:57 Myocardial infarct finding now present ST (T wave) deviation now present Sinus rhythm no longer present Electronically Signed On 01-08-2018 10:59:53 CDT by Med Degroot [email or web address] <ELECTRONICALLY SIGNED> By: Bryan Degroot MD, [facility] 01/08/18 1059 1551 1551 Bryan Degroot MD, [facility] /EPI
[2018-01-08 14:32] LABS: ALBUMIN 2.9 g/dL (3.4-5.0); CALCIUM 6.8 mg/dL (8.5-10.1)
[2018-01-08 14:37] LABS: CREATININE 6.4 mg/dL (0.6-1.3); POTASSIUM 4.3 mmol/L (3.5-5.1)
[2018-01-08 18:23] LABS: ALBUMIN 3.1 g/dL (3.4-5.0); CALCIUM 7.3 mg/dL (8.5-10.1); CREATININE 5.9 mg/dL (0.6-1.3); POTASSIUM 4.4 mmol/L (3.5-5.1)
[2018-01-09] VITALS: BP 83/43
[2018-01-09 04:00] VITALS: BP 104/61
[2018-01-09 05:02] LABS: HEMATOCRIT 37.8 % (42.0-52.0); HEMOGLOBIN 12.6 gm/dL (14.0-18.0); MCH 31.8 pg (26.0-34.0); MCHC 33.3 g/dL (28.0-37.0); MCV 95.5 fL (80.0-100.0); RBC 3.95 mil/uL (4.50-6.00); RDW-CV 16.3 % (10.5-14.5); WBC 9.2 thou/uL (4.0-11.0)
[2018-01-09 05:17] LABS: ALBUMIN 2.9 g/dL (3.4-5.0); CALCIUM 7.1 mg/dL (8.5-10.1); MAGNESIUM 2.2 mg/dL (1.8-2.4); POTASSIUM 4.8 mmol/L (3.5-5.1); TOTAL BILIRUBIN 0.4 mg/dL (<0.1-1.0); TOTAL PROTEIN 6.4 g/dL (6.4-8.2)
[2018-01-09 05:54] LABS: CREATININE 7.1 mg/dL (0.6-1.3)
[2018-01-09 07:30] VITALS: BP 146/86
--- NOTE | 2018-01-09 08:00 | CON ---
[address] [address] CONSULTATION Name: ELIZABETH LOZA Room: [address] IN [facility].#: [id number] Admission: 01/07/18 Attend Phys: Dc Jernigan, Discharge: Date of : 65 Report #: [id number] THIS REPORT FOR: //name// CC: FAM physician/PCP Dc Jernigan DATE OF SERVICE: 01/08/2018 ATTENDING PHYSICIAN: Dc Jernigan MD REASON FOR EVALUATION: Abdominal pain with associated diarrhea. The patient has a marked hyperglycemia, suspected infectious etiology. HISTORY OF PRESENT ILLNESS: Chart reviewed, the patient examined. This is a 52-year-old man with end-stage renal disease on hemodialysis for the last 6 years, who had acute onset of lower abdominal pain within a few hours prior to his being evaluated. Of note, he has a history of bladder cancer with resection. It is notable he has no urine output to speak of. He has had some chills and perhaps some low-grade temperature elevations, although he is not certain. He had initially a formed stool and now multiple loose stools, studies have been sent. His blood sugars were markedly elevated and went to greater than 1000 as confirmed during the early hours of the admission. Generally, situation is better at this point. Blood cultures are sterile thus far. Stool cultures are pending. He was empirically started on dose of vancomycin as well as Zosyn. CT abdomen and pelvis showed circumferential wall thickening within the bladder, which is decompressed, moderate stool within the colon, severe diffuse atherosclerotic disease. ALLERGIES: None known. CURRENT MEDICATIONS: Include insulin, folic acid, aspirin, Zosyn, carvedilol, ondansetron, fentanyl as needed. PAST MEDICAL HISTORY: Diabetes mellitus type 2 diagnosed in 1997, he has been on dialysis for last 6 years due to end-stage renal disease, hyperlipidemia, hypertension, bladder cancer post resection. SOCIAL HISTORY: A pack a day for the last 35 years. No ethanol. No illicit drug use. FAMILY HISTORY: Noncontributory. REVIEW OF SYSTEMS: He denies significant pulmonary-related complaints at this point. PHYSICAL EXAMINATION: [place] [address] CONSULTATION Name: ELIZABETH LOZA Room: [address]#: [id number] Admission: 01/07/18 Attend Phys: Dc Jernigan, Discharge: Date of : 65 Report #: [id number] GENERAL: Appears chronically ill, undernourished. He is lucid. VITAL SIGNS: Temperature 98.4, pulse 86, respiration 21, blood pressure 155/74. SKIN: Warm, dry, no rashes. HEENT: Unremarkable. NECK: Supple. LUNGS: Generally clear to auscultation. HEART: Regular. ABDOMEN: Mildly tender. There are no peritoneal signs. GENITOURINARY AND RECTAL: Deferred. LABORATORY DATA: Initial CBC: White count of 12.5, H and H 12.8/38.8, platelets of 265. Electrolytes: Sodium 129, potassium 6.0, chloride 88, bicarbonate is 32, anion gap of 9, BUN and creatinine 45 and 7.7. Initial glucose was 816, repeat was 1123. CT abdomen and pelvis as described above. ABGs; pH 7.393, pCO2 of 40.5, pO2 of 66.3 on room air, lactic acid 1.6. Blood cultures are sterile thus far. Plain film of the abdomen showed no acute process. ASSESSMENT: Marked hyperglycemia in a patient with longstanding diabetes mellitus certainly raises question of some sort of a stressor such as an infection. Abdominal imaging has been otherwise unhelpful. We will try to collect some stool studies, although diarrhea was in the presenting factors, has developed subsequent. We will continue empiric antimicrobial therapy at this point, he is not overtly toxic, may be a self-limited issue. He is not aware of any risk factors or exposure history at this point. Continue efforts to control his blood sugar. <ELECTRONICALLY SIGNED> By: Nikko Daugherty MD 01/09/18 0800 1112 31Joeleni Daugherty MD /nt
[2018-01-09 13:09] LABS: HEPATITIS B SURFACE AG Negative (Negative)
[2018-01-09 14:46] VITALS: BP 146/86
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
== END 2018-01-09 15:07 | disposition home or self-care (01) | DRG 371 ==
LOC: M.ERS 15:27 → M.TBA-ER 16:53 → M.2W 16:53 → M.ICU 17:39 → M.2W 01-08 17:51
PROVIDERS: Family Medicine; Internal Medicine Nephrology; ADMIT Family Medicine
DX: A04.9 Bacterial intestinal infection, unspecified (principal); N18.6 End stage renal disease; I12.0 Hypertensive chronic kidney disease with stage 5 chronic kidney disease or end stage renal disease; E87.1 Hypo-osmolality and hyponatremia; E72.51 Non-ketotic hyperglycinemia; E78.5 Hyperlipidemia, unspecified; E87.5 Hyperkalemia; F17.210 Nicotine dependence, cigarettes, uncomplicated; I77.0 Arteriovenous fistula, acquired; E10.22 Type 1 diabetes mellitus with diabetic chronic kidney disease; D63.8 Anemia in other chronic diseases classified elsewhere; D72.829 Elevated white blood cell count, unspecified; K59.00 Constipation, unspecified; J44.9 Chronic obstructive pulmonary disease, unspecified; Z86.010 Personal history of colon polyps; Z79.4 Long term (current) use of insulin; Z85.51 Personal history of malignant neoplasm of bladder; Z82.49 Family history of ischemic heart disease and other diseases of the circulatory system; Z79.899 Other long term (current) drug therapy

== ENCOUNTER 2018-01-14 06:48 | Inpatient (IN) | payer MEDICARE, BC ==
[~2018-01-14] VITALS: Ht 172.7 cm; Wt 93.4 kg
[2018-01-14 06:59] VITALS: BP 171/90
[2018-01-14 07:29] LABS: ABSOLUTE BASOPHILS 0.1 thou/uL (0.0-0.2); ABSOLUTE EOSINOPHILS 0.3 thou/uL (0.0-0.7); ABSOLUTE MONOCYTES 1.2 thou/uL (0.0-1.2); ABSOLUTE NEUTROPHILS 11.2 thou/uL (1.6-8.1); BASOPHILS 0.4 %; EOSINOPHILS 1.9 %; HEMATOCRIT 36.5 % (42.0-52.0); LYMPHOCYTES 13.6 %; MCH 32.2 pg (26.0-34.0); MCHC 32.9 g/dL (28.0-37.0); MCV 97.7 fL (80.0-100.0); MONOCYTES 7.9 %; MPV 9.2 fl. (7.2-11.1); NUCLEATED RBCS 0 /100WBC; PLATELET COUNT* 215 thou/uL (150-400); POLYS 76.2 %; RBC 3.73 mil/uL (4.50-6.00); RDW-CV 16.1 % (10.5-14.5); WBC 14.7 thou/uL (4.0-11.0)
[2018-01-14 07:37] LABS: ANION GAP 9 mmol/L (7-16); BUN 75 mg/dL (7-18); CALCIUM 6.9 mg/dL (8.5-10.1); CHLORIDE 93 mmol/L (98-107); CO2 31 mmol/L (21-32); CREATININE 10.1 mg/dL (0.6-1.3); GLUCOSE 211 mg/dL (70-99); SODIUM 133 mmol/L (136-145)
[2018-01-14 07:42] LABS: POTASSIUM 7.5 mmol/L (3.5-5.1)
[2018-01-14 07:57] LABS: ALBUMIN 3.3 g/dL (3.4-5.0); ALKALINE PHOSPHATASE 51 U/L (46-116); CK-MB MASS 5.7 ng/mL (<0.5-3.6); NT-PRO BRAIN NAT PEPTIDE 11235 pg/mL (<300); SGOT 17 U/L (15-37); SGPT 20 U/L (30-65); TOTAL BILIRUBIN 0.5 mg/dL (<0.1-1.0); TOTAL PROTEIN 7.8 g/dL (6.4-8.2); TROPONIN-I LEVEL <0.06 ng/mL (<0.06)
[2018-01-14 10:15] VITALS: BP 150/50
[2018-01-14 16:33] VITALS: BP 156/83
[2018-01-14 19:30] VITALS: BP 146/86
[2018-01-15] VITALS: BP 122/75
[2018-01-15 05:20] LABS: ABSOLUTE BASOPHILS 0.1 thou/uL (0.0-0.2); ABSOLUTE EOSINOPHILS 0.4 thou/uL (0.0-0.7); ABSOLUTE LYMPHOCYTES 2.1 thou/uL (0.8-5.3); BASOPHILS 0.7 %; EOSINOPHILS 3.4 %; HEMOGLOBIN 13.5 gm/dL (14.0-18.0); MCH 32.5 pg (26.0-34.0); MCHC 33.6 g/dL (28.0-37.0); MCV 96.7 fL (80.0-100.0); MONOCYTES 9.6 %; MPV 9.4 fl. (7.2-11.1); NUCLEATED RBCS 0 /100WBC; PLATELET COUNT* 177 thou/uL (150-400); POLYS 66.3 %; RBC 4.14 mil/uL (4.50-6.00); RDW-CV 16.3 % (10.5-14.5); WBC 10.6 thou/uL (4.0-11.0)
[2018-01-15 06:01] LABS: ALBUMIN 3.2 g/dL (3.4-5.0); CALCIUM 7.7 mg/dL (8.5-10.1); TOTAL BILIRUBIN 0.5 mg/dL (<0.1-1.0); TOTAL PROTEIN 7.2 g/dL (6.4-8.2)
[2018-01-15 06:03] LABS: CREATININE 7.2 mg/dL (0.6-1.3); POTASSIUM 5.5 mmol/L (3.5-5.1)
[2018-01-15 08:00] VITALS: BP 144/88
--- NOTE | 2018-01-15 08:55 | CON ---
[address] [address] CONSULTATION Name: ELIZABETH LOZA Room: [address] IN [facility]#: [id number] Admission: 01/14/18 Attend Phys: Oscar Miller Discharge: Date of : 65 Report #: [id number] THIS REPORT FOR: //name// CC: Momo Bautista DATE OF SERVICE: 01/14/2018 CONSULTING PHYSICIAN: Doug Bautista DO. REASON FOR NEPHROLOGY CONSULTATION: End-stage renal disease for maintenance hemodialysis and hyperkalemia. CHIEF COMPLAINT: The patient missed the dialysis, was just not feeling right. HISTORY OF PRESENT ILLNESS: This is a 52-year-old male with past medical history of end-stage renal disease, who is on hemodialysis every Tuesday, Tuesday and Tuesday at [facility] who missed his dialysis yesterday. The patient says he ran the bowel yesterday, but nobody responded, so he waited 30 minutes and then, he left. He is currently not having any symptoms, but his potassium was found to be 7.5. Nephrology has been consulted for dialysis. ALLERGIES: No known drug allergies. REVIEW OF SYSTEMS: As mentioned above, the patient has no nausea, vomiting or diarrhea or shortness of breath. PAST MEDICAL AND SURGICAL HISTORY: Includes diabetes type 2; hyperlipidemia; tobacco dependence; ESRD, on hemodialysis every Tuesday, Tuesday and [place], has been on dialysis for 6 years; has a right arm AV fistula; right upper extremity revision with PTFE graft in there; prior cancer; toes amputated both feet and hypertension. CURRENT MEDICATIONS: Include insulin Lispro, insulin aspart, carvedilol, amlodipine, losartan, aspirin, folic acid, atorvastatin, clonidine, calcium acetate and . FAMILY HISTORY: Noncontributory. SOCIAL HISTORY: He states that he does not smoke, drink alcohol or take illicit drugs. CURRENT INPATIENT MEDICATIONS: Reviewed. PHYSICAL EXAMINATION: VITAL SIGNS: Blood pressure is 125/62, pulse rate is 82, [place] [address] CONSULTATION Name: ELIZABETH LOZA Room: [address] IN [facility]#: [id number] Admission: 01/14/18 Attend Phys: Oscar Miller Discharge: Date of : 65 Report #: [id number] 12, pulse ox 94% on room air. His temperature, he is afebrile, temperature 36.1. GENERAL: He is awake and alert and he is not in any acute distress. HEAD, EYES, EARS, NOSE, THROAT: Mucous membranes are moist. NECK: There is no JVD. CHEST: Clear to auscultation bilateral. No crackles or wheezing. CARDIOVASCULAR: S1, S2 normal. No murmurs heard. ABDOMEN: Soft, nondistended, nontender, bowel sounds present. EXTREMITIES: No lower extremity edema, symmetrical lower extremities. DIALYSIS ACCESS: He has right arm AV graft with good bruit. NEUROLOGICAL: Gross neurological function is intact. PSYCHIATRIC: Mood and affect seem to be normal. LABORATORY DATA: WBC is 14.7, hemoglobin is 12, platelet count is 215. Sodium 133, potassium 7.5, CO2 31. Other labs are reviewed. IMAGING: Chest x-ray and abdominal x-ray were reviewed. ASSESSMENT AND PLAN: 1. End-stage renal disease, on maintenance hemodialysis, missed his dialysis yesterday. Goes to dialysis on Tuesday, Tuesday and Tuesday at [facility]. 2. Hypertension, blood pressure is controlled. 3. Hyperkalemia, potassium 7.5. 4. Anemia of chronic kidney disease, hemoglobin 12 at goal. 5. Secondary hyperparathyroidism, hyperphosphatemia, continue his binders. PLAN: 1. We will dialyze him urgently since potassium is 7.5, potassium should be rechecked 2 hours after dialysis. We will use a 2 K bath for his dialysis, but will use a 1 K bath for the last 1 hour. 2. We will also check labs in the morning. Thank you for this consultation. We will continue to follow along with you. Discussed with Dr. Bautista, the patient's nurse as well as dialysis nurse. <ELECTRONICALLY SIGNED> By: Majo Creon MD 01/15/18 0855 0941 1042Aisabela Ceron MD /nt
[2018-01-15 11:11] VITALS: BP 144/88
--- NOTE | 2018-01-15 16:59 | EKG ---
[place] [address] ELECTROCARDIOGRAM REPORT Name: ELIZABETH LOZA Room: [address] IN [facility]#: [id number] Admission: 01/14/18 Attend Phys: Oscar Miller Discharge: 01/15/18 Date of : 65 Report #: [id number] THIS REPORT FOR: //name// [facility] ED Test Date: 2018-01-14 Test Time: 07:42:00 Pat Name: ELIZABETH LOZA Department: Room: [facility] Gender: M Supervisor Solder Making: Doyle DE JESUS : 1965 Requested By: Gisselle Caldwell Order Number: [id number] MD: Jeremiah Rasmussen Measurements Intervals [place] Rate: 86 P: 9 [place]: 190 QRS: -14 QRSD: 103 T: 38 QT: 390 QTc: 467 Interpretive Statements Sinus rhythm Anterior infarct, old Compared to ECG 01/07/2018 15:51:26 Sinus tachycardia no longer present ST (T wave) deviation no longer present Myocardial infarct finding still present Electronically Signed On 01-15-2018 16:58:54 CDT by Jeremiah Rasmussen [email or web address] <ELECTRONICALLY SIGNED> By: Jeremiah Rasmussen MD, FACC 01/15/18 1658 0742 0742 Jeremiah Rasmussen MD, FACC /EPI
[2018-01-16 16:08] LABS: HEPATITIS B SURFACE AG Negative (Negative)
== END 2018-01-15 11:15 | disposition left against medical advice (07) | DRG 682 ==
LOC: M.ERS 06:48 → M.TBA-ER 08:12 → M.2W 08:12
PROVIDERS: Internal Medicine; Personal Emergency Response Attendant; ADMIT Internal Medicine
PROC: 5A1D70Z Performance of Urinary Filtration, Intermittent, Less than 6 Hours Per Day (ICD-10-PCS; principal; 2018-01-14)
DX: I12.0 Hypertensive chronic kidney disease with stage 5 chronic kidney disease or end stage renal disease (principal); N18.6 End stage renal disease; G92 Toxic encephalopathy; N25.81 Secondary hyperparathyroidism of renal origin; E87.5 Hyperkalemia; E83.41 Hypermagnesemia; D63.8 Anemia in other chronic diseases classified elsewhere; E83.39 Other disorders of phosphorus metabolism; F17.210 Nicotine dependence, cigarettes, uncomplicated; E11.649 Type 2 diabetes mellitus with hypoglycemia without coma; E78.5 Hyperlipidemia, unspecified; Z89.421 Acquired absence of other right toe(s); Z89.422 Acquired absence of other left toe(s); Z79.82 Long term (current) use of aspirin; Z79.899 Other long term (current) drug therapy; Z99.2 Dependence on renal dialysis; Z85.51 Personal history of malignant neoplasm of bladder; Z83.3 Family history of diabetes mellitus

== ENCOUNTER 2018-02-02 14:26 | Emergency (ER) | payer MEDICARE, BC ==
[~2018-02-02] VITALS: Ht 172.7 cm; Wt 75.8 kg
[2018-02-02 15:20] LABS: ABSOLUTE BASOPHILS 0.2 thou/uL (0.0-0.2); ABSOLUTE EOSINOPHILS 0.1 thou/uL (0.0-0.7); ABSOLUTE LYMPHOCYTES 1.8 thou/uL (0.8-5.3); ABSOLUTE MONOCYTES 1.3 thou/uL (0.0-1.2); ABSOLUTE NEUTROPHILS 12.9 thou/uL (1.6-8.1); EOSINOPHILS 0.7 %; HEMATOCRIT 38.7 % (42.0-52.0); HEMOGLOBIN 12.9 gm/dL (14.0-18.0); LYMPHOCYTES 10.8 %; MCH 32.1 pg (26.0-34.0); MCHC 33.4 g/dL (28.0-37.0); MONOCYTES 7.8 %; NUCLEATED RBCS 0 /100WBC; PLATELET COUNT* 246 thou/uL (150-400); POLYS 79.7 %; RBC 4.03 mil/uL (4.50-6.00); RDW-CV 15.7 % (10.5-14.5); WBC 16.2 thou/uL (4.0-11.0)
[2018-02-02 15:21] LABS: ANION GAP 8 mmol/L (7-16); BUN 43 mg/dL (7-18); CALCIUM 7.3 mg/dL (8.5-10.1); CHLORIDE 93 mmol/L (98-107); CO2 34 mmol/L (21-32); GLUCOSE 294 mg/dL (70-99); POTASSIUM 3.9 mmol/L (3.5-5.1); SODIUM 135 mmol/L (136-145)
[2018-02-02 15:26] LABS: APTT 28.4 Seconds (25.0-31.3); PROTIME 10.1 Seconds (9.20-11.50)
[2018-02-02 15:29] LABS: ALBUMIN 3.2 g/dL (3.4-5.0); ALKALINE PHOSPHATASE 63 U/L (46-116); SGOT 14 U/L (15-37); SGPT 17 U/L (30-65); TOTAL BILIRUBIN 0.3 mg/dL (<0.1-1.0); TOTAL PROTEIN 7.7 g/dL (6.4-8.2); TROPONIN-I LEVEL <0.06 ng/mL (<0.06)
[2018-02-02] MEDS ORDERED: HYDROCODONE-AP1 EAC6 PO (15:49)
[2018-02-02] MEDS ORDERED: ZPAK PO (15:49)
[2018-02-02] MEDS ORDERED: ZOFRAN ODT4 MG DISSOLVE (15:54)
[2018-02-02 15:58] VITALS: BP 126/80
--- NOTE | 2018-02-03 10:37 | EKG ---
[place] [address] ELECTROCARDIOGRAM REPORT Name: ELIZABETH LOZA Room: [facility]#: [id number] Admission: 02/02/18 Attend Phys: Discharge: 02/02/18 Date of : 65 Report #: [id number] THIS REPORT FOR: //name// [facility] ED Test Date: 2018-02-02 Test Time: 15:11:52 Pat Name: ELIZABETH LOZA Department: Room: Gender: M Junk Dealer: Doyle LOPEZ : 1965 Requested By: Aravind Miller Order Number: [id number] MD: Yariel Pardo Measurements Intervals [place] Rate: 107 P: 45 [place]: 147 QRS: -36 QRSD: 100 T: 62 QT: 365 QTc: 487 Interpretive Statements Sinus tachycardia Atrial premature complex Probable left atrial enlargement Inferior infarct, old Possible anteroseptal infarct, age indeterminant Baseline wander in lead(s) V2,V6 Compared to ECG 01/14/2018 07:42:00 Atrial premature complex(es) now present Sinus rhythm no longer present Myocardial infarct finding still present Electronically Signed On 02-03-2018 10:37:02 CDT by Yariel Pardo [email or web address] <ELECTRONICALLY SIGNED> By: Yariel Pardo MD, FACC 02/03/18 1037 151 151 Yariel Pardo MD, FAC /EPI
== END 2018-02-02 15:58 | disposition home or self-care (01) ==
LOC: M.ERS 14:26
PROVIDERS: Emergency Medicine Emergency Medical Services
DX: J40 Bronchitis, not specified as acute or chronic (principal); R07.89 Other chest pain; E78.5 Hyperlipidemia, unspecified; I12.0 Hypertensive chronic kidney disease with stage 5 chronic kidney disease or end stage renal disease; E11.22 Type 2 diabetes mellitus with diabetic chronic kidney disease; N18.6 End stage renal disease; Z99.2 Dependence on renal dialysis; Z85.51 Personal history of malignant neoplasm of bladder; Z79.4 Long term (current) use of insulin

== ENCOUNTER 2018-05-27 13:10 | Emergency (ER) | payer MEDICARE, BC ==
[~2018-05-27] VITALS: Ht 172.7 cm; Wt 74.0 kg
[~2018-05-27 13:10] MED LIST changes: +HYDROCODONE-AP1 EAC6 PO; +ZOFRAN ODT4 MG DISSOLVE; +ZPAK PO
[2018-05-27] MEDS ORDERED: CLONIDINE0.1 PO (13:22)
[2018-05-27] MEDS ORDERED: INSULIN SUBQ (13:26)
[2018-05-27 16:05] LABS: ABSOLUTE BASOPHILS 0.1 thou/uL (0.0-0.2); ABSOLUTE EOSINOPHILS 0.3 thou/uL (0.0-0.7); ABSOLUTE MONOCYTES 0.7 thou/uL (0.0-1.2); ABSOLUTE NEUTROPHILS 7.3 thou/uL (1.6-8.1); EOSINOPHILS 3.3 %; HEMATOCRIT 34.8 % (42.0-52.0); HEMOGLOBIN 12.1 gm/dL (14.0-18.0); LYMPHOCYTES 19.5 %; MCHC 34.7 g/dL (28.0-37.0); MCV 92.2 fL (80.0-100.0); MONOCYTES 6.9 %; MPV 8.4 fl. (7.2-11.1); NUCLEATED RBCS 0 /100WBC; PLATELET COUNT* 284 thou/uL (150-400); POLYS 69.3 %; RBC 3.78 mil/uL (4.50-6.00); RDW-CV 16.6 % (10.5-14.5); WBC 10.5 thou/uL (4.0-11.0)
[2018-05-27 16:15] LABS: APTT 26.6 Seconds (25.0-31.3); CALCIUM 7.7 mg/dL (8.5-10.1); CREATININE 6.9 mg/dL (0.6-1.3); POTASSIUM 5.7 mmol/L (3.5-5.1); PROTIME 10.3 Seconds (9.20-11.50)
[2018-05-27 16:22] LABS: ALBUMIN 3.7 g/dL (3.4-5.0); TOTAL BILIRUBIN 0.5 mg/dL (<0.1-1.0); TOTAL PROTEIN 7.7 g/dL (6.4-8.2)
[2018-05-27 16:54] VITALS: BP 139/72
== END 2018-05-27 16:40 | disposition home or self-care (01) ==
LOC: M.ERS 13:10
PROVIDERS: Nurse Practitioner Family
DX: M25.511 Pain in right shoulder (principal); E78.5 Hyperlipidemia, unspecified; I12.0 Hypertensive chronic kidney disease with stage 5 chronic kidney disease or end stage renal disease; E11.22 Type 2 diabetes mellitus with diabetic chronic kidney disease; N18.6 End stage renal disease; Z99.2 Dependence on renal dialysis; Z85.51 Personal history of malignant neoplasm of bladder; Z79.4 Long term (current) use of insulin

== ENCOUNTER 2018-06-13 14:33 | Inpatient (IN) | payer MEDICARE, BC ==
[~2018-06-13] VITALS: Ht 170.2 cm; Wt 63.5 kg
--- NOTE | ~2018-06-13 | CON ---
[address] [address] CONSULTATION Name: ELIZABETH LOZA Room: [address] IN .#: [id number] Admission: 06/13/18 Attend Phys: Marcus Coffey MD Discharge: Date of : 65 Report #: [id number] THIS REPORT FOR: //name// CC: Marcus Aguillon DATE OF SERVICE: 06/14/2018 REASON FOR CONSULT: Dyspepsia, abdominal pain, change in bowel habits. HISTORY OF PRESENT ILLNESS: This is a 52-year-old male with a history of insulin-dependent diabetes mellitus who also had kidney disease and on hemodialysis. He has been having symptoms of dyspepsia, left upper quadrant pain and change in bowel habits. He denies any hematochezia or melena. He reports that he has not been able to eat well and has had poor appetite. He occasionally vomits. PAST MEDICAL HISTORY: Significant for history of chronic kidney disease requiring dialysis, bronchitis, insulin-dependent diabetes mellitus, hypertension, history of bladder cancer, dyslipidemia, amputation of the toes. ALLERGIES: No known drug allergy. MEDICATIONS: Please refer to MAR. SOCIAL HISTORY: The patient has history of tobaccoism. Denies alcohol use. FAMILY HISTORY: Noncontributory. PHYSICAL EXAMINATION: VITAL SIGNS: Reveals blood pressure of 106/73, respiration 19, pulse 95, temperature 36.1 centigrade. LUNGS: Clear. CARDIOVASCULAR: Regular. ABDOMEN: Soft, tender to palpation in the left upper quadrant. Bowel sounds are positive. LABORATORY DATA: Reveal WBC of 10.7, hemoglobin 11.5, platelet is 193. Sodium is 138, potassium 5.8, BUN is 17, creatinine 5.3, glucose is 265. Liver enzymes are within normal limits. IMAGING: CT of abdomen and pelvis was obtained. There is no significant finding in liver, spleen, pancreas and bowel loops. ASSESSMENT AND PLAN: The patient with dyspepsia, left upper quadrant pain, nausea and vomiting. I believe that his poor [place] [address] CONSULTATION Name: ELIZABETH LOZA Room: [address] IN [facility].#: [id number] Admission: 06/13/18 Attend Phys: Marcus Coffey MD Discharge: Date of : 65 Report #: [id number] contributes to his symptoms of early satiety, nausea and vomiting. He also has change in bowel habits. We will consider upper and lower endoscopy and make further recommendation based on findings. By: [id number] [id number] Hillman MD /nt
[~2018-06-13 14:33] MED LIST changes: +CLONIDINE0.1 PO; +INSULIN SUBQ
[2018-06-13 14:56] VITALS: BP 190/83
[2018-06-13 15:27] LABS: ABSOLUTE BASOPHILS 0.2 thou/uL (0.0-0.2); ABSOLUTE EOSINOPHILS 0.4 thou/uL (0.0-0.7); ABSOLUTE LYMPHOCYTES 2.1 thou/uL (0.8-5.3); ABSOLUTE NEUTROPHILS 11.3 thou/uL (1.6-8.1); BASOPHILS 1.3 %; EOSINOPHILS 2.8 %; HEMATOCRIT 35.9 % (42.0-52.0); HEMOGLOBIN 12.1 gm/dL (14.0-18.0); LYMPHOCYTES 13.7 %; MCH 31.2 pg (26.0-34.0); MCHC 33.5 g/dL (28.0-37.0); MCV 93.1 fL (80.0-100.0); MONOCYTES 6.9 %; MPV 8.4 fl. (7.2-11.1); NUCLEATED RBCS 0 /100WBC; PLATELET COUNT* 295 thou/uL (150-400); POLYS 75.3 %; RBC 3.86 mil/uL (4.50-6.00); RDW-CV 17.2 % (10.5-14.5)
[2018-06-13 15:32] LABS: ANION GAP 11 mmol/L (7-16); BUN 41 mg/dL (7-18); CALCIUM 7.7 mg/dL (8.5-10.1); CHLORIDE 92 mmol/L (98-107); CO2 35 mmol/L (21-32); CREATININE 8.2 mg/dL (0.6-1.3); GLUCOSE 433 mg/dL (70-99); SODIUM 138 mmol/L (136-145)
[2018-06-13 15:35] LABS: POTASSIUM 6.8 mmol/L (3.5-5.1)
[2018-06-13 15:42] LABS: ALBUMIN 3.7 g/dL (3.4-5.0); ALKALINE PHOSPHATASE 62 U/L (46-116); LIPASE 180 U/L (73-393); SGOT 13 U/L (15-37); SGPT 17 U/L (30-65); TOTAL BILIRUBIN 0.4 mg/dL (<0.1-1.0); TROPONIN-I LEVEL <0.06 ng/mL (<0.06)
[2018-06-13 16:32] LABS: BE 7.2 mmol/L (-2 to +3); PCO2 43.6 mmHg (35.0-45.0); PO2 63.1 mmHg (75.0-100.0); pH 7.477 (7.340-7.450)
[2018-06-13 18:56] VITALS: BP 145/75
[2018-06-13 19:00] VITALS: BP 160/84
[2018-06-14 04:00] VITALS: BP 157/91
[2018-06-14 05:00] LABS: HEMOGLOBIN 11.5 gm/dL (14.0-18.0); MCH 31.5 pg (26.0-34.0); MCHC 33.7 g/dL (28.0-37.0); MCV 93.6 fL (80.0-100.0); MPV 8.5 fl. (7.2-11.1); RBC 3.64 mil/uL (4.50-6.00); RDW-CV 17.1 % (10.5-14.5); WBC 10.7 thou/uL (4.0-11.0)
[2018-06-14 05:28] LABS: CALCIUM 7.6 mg/dL (8.5-10.1); MAGNESIUM 2.1 mg/dL (1.8-2.4)
[2018-06-14 05:30] LABS: CREATININE 5.9 mg/dL (0.6-1.3); POTASSIUM 4.7 mmol/L (3.5-5.1)
[2018-06-14 07:30] VITALS: BP 213/107
[2018-06-14 12:00] VITALS: BP 134/80
--- NOTE | 2018-06-14 13:03 | EKG ---
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: ANDRE : 1965 Requested By: Rocio Yañez Order Number: [id number] MD: Satish Hurtado Measurements Intervals [place] Rate: 103 P: 64 [place]: 171 QRS: -23 QRSD: 101 T: 43 QT: 377 QTc: 494 Interpretive Statements Sinus tachycardia Left atrial enlargement Borderline left axis deviation Borderline low voltage, extremity leads Borderline prolonged QT interval Baseline wander in lead(s) V3 Compared to ECG 02/02/2018 15:11:52 Atrial premature complex(es) no longer present Electronically Signed On 06-14-2018 13:03:01 OLIVE PICKER by Satish Hurtado [email or web address] <ELECTRONICALLY SIGNED> By: Satish Hurtado MD, FACC 06/14/18 1303 1534 1534 Satish Hurtado MD, FAC /EPI
[2018-06-14 16:00] VITALS: BP 106/73
[2018-06-14 20:00] VITALS: BP 139/74
[2018-06-15] VITALS: BP 135/71
[2018-06-15 04:00] VITALS: BP 199/89
[2018-06-15 05:29] LABS: CALCIUM 7.8 mg/dL (8.5-10.1); CREATININE 5.3 mg/dL (0.6-1.3); PHOSPHORUS* 6.3 mg/dL (2.5-4.9); POTASSIUM 5.1 mmol/L (3.5-5.1)
--- NOTE | 2018-06-15 09:19 | CON ---
[address] [address] CONSULTATION Name: RIZWANAELIZABETH HUGO Room: [place] [address] ADM IN .R.#: [id number] Admission: 06/13/18 Attend Phys: Marcus Coffey MD Discharge: Date of : 65 Report #: [id number] THIS REPORT FOR: //name// CC: Marcus Aguillon DATE OF SERVICE: 06/14/2018 REFERRING PHYSICIAN: Dr. Coffey. REASON FOR NEPHROLOGY CONSULTATION: ESRD, for dialysis needs. CHIEF COMPLAINT: Abdominal pain. HISTORY OF PRESENT ILLNESS: This is a 52-year-old male. He has past medical history of end-stage renal disease, goes for hemodialysis every Tuesday, Tuesday, Tuesday. He goes to [facility] and went for his dialysis on Tuesday and does not usually miss treatments, came in with left upper quadrant abdominal pain. He had a potassium of 6.8 when he came in and he was urgently dialyzed for 2-1/2 hours last night and potassium is 4.7 this morning. Plan is for dialysis again today. He has history of bladder cancer, but that has been treated in the past. He also reported having some loose stools. He had a CT abdomen done, did not show anything acute to point out towards his pain and he states that his pain is now improving and he feels he might have to have a bowel movement and the pain will improve after that. He has a right arm AV fistula. ALLERGIES: No known allergies. REVIEW OF SYSTEMS: As mentioned in history of present illness. Currently he is not having any pain, no acute complaints, and a 10-point review of systems done negative. HOME MEDICATIONS: Include insulin aspart, amlodipine, aspirin, folic acid, atorvastatin, carvedilol, calcium acetate, clonidine. PAST MEDICAL AND SURGICAL HISTORY: Includes diabetes type 2, hyperlipidemia, tobacco dependence, hypertension, end-stage renal disease, on hemodialysis every Tuesday, Tuesday, Tuesday; right upper extremity revision with PTFE graft, bladder cancer, toes amputated on both feet. FAMILY HISTORY: Diabetes. SOCIAL HISTORY: He smokes every day. Does not use illicit drugs, did not report history of alcohol use. PHYSICAL EXAMINATION: [place] [address] CONSULTATION Name: ELIZABETH LOZA Room: [address]#: [id number] Admission: 06/13/18 Attend Phys: Marcus Coffey MD Discharge: Date of : 65 Report #: [id number] VITAL SIGNS: Blood pressure is 157/91, respiratory rate is 20, pulse rate is 90, temperature 36.8 and pulse ox 94% and he is on room air. GENERAL: He is awake, alert, oriented x 3. HEAD, EYES, EARS, NOSE AND THROAT: Mucous membranes are moist. NECK: There is no JVD. CHEST: Bilaterally clear to auscultation. No crackles or wheezing. CARDIOVASCULAR: S1, S2 normal. No murmurs or thrills. ABDOMEN: Currently soft, nondistended, nontender. Bowel sounds are present. EXTREMITIES: He has a right arm AV graft. Lower extremities, he has no edema. NEUROLOGICAL FUNCTION: Gross neurologic function seems to be intact. PSYCHIATRIC: Mood and affect seem to be normal. LABORATORY DATA: Potassium is 4.7 this morning. Hemoglobin is 11.5. Potassium was 6.8 when he came in. Sodium is 137 today. Other labs are reviewed. IMAGING: Renal ultrasound, chest x-ray and abdominal CT were reviewed. Renal ultrasound was done mostly for a Doppler study and there was unremarkable abdominal mesenteric Doppler. ASSESSMENT: 1. End-stage renal disease, on hemodialysis every Tuesday, Tuesday, Tuesday. 2. Hyperkalemia, potassium 6.8 on admission. 3. Hypertension. 4. Left upper quadrant pain and loose stools, pain is improving. 5. Secondary hyperparathyroidism, phosphorus will need to be checked. PLAN: 1. The patient was dialyzed yesterday urgently because of hyperkalemia and the patient is going to receive dialysis again today for about 3-1/2 hours. 2. Management of abdominal pain as per primary, but it seems like it is already improving. 3. We will check a phosphorus level. 4. Primary team is planning to discharge him after dialysis; it will be okay from a renal standpoint. We will continue to follow for dialysis needs. <ELECTRONICALLY SIGNED> By: Majo Ceron MD 06/15/18 0919 [id number] [id number] Ceron MD /nt
[2018-06-15 16:36] VITALS: BP 140/74
[2018-06-15 19:30] VITALS: BP 148/72
[2018-06-16 08:00] VITALS: BP 128/64
[2018-06-16] MEDS ORDERED: CARAFATE 1 GM TA1 G1 PO (08:15)
[2018-06-16] MEDS ORDERED: PANTOPRAZOLE SO40 M1 PO (08:15)
[2018-06-16 16:00] VITALS: BP 165/88
[2018-06-16 20:00] VITALS: BP 143/77
[2018-06-17] VITALS: BP 127/77
[2018-06-17 07:59] VITALS: BP 103/62
[2018-06-17 11:02] VITALS: BP 103/62
[2018-06-17 11:07] VITALS: BP 103/62
[2018-06-17 11:13] VITALS: BP 103/62
[2018-06-17 11:38] VITALS: BP 103/62
--- NOTE | 2018-06-19 10:07 | PATH ---
[address] [address] PATHOLOGY RPT PROCEDURE Name: GOLDEN DOYLE Room: [address] IN M.R.#: [id number] Admission: 06/13/18 Date of : 65 Discharge: 06/17/18 Report #: [id number] Path Case #: [id number] [facility] Accession Number: [id number] . 01 Material submitted: . PART A: GASTRIC BIOPSIES PART B: DUODENAL BIOPSIES . 01 Clinical history: . None provided . 02 Diagnosis: A. Gastric biopsies: - Mild to moderate chronic reactive gastropathy. - The immunoperoxidase stain for Helicobacter pylori is negative. . B. Duodenum, "duodenal biopsies 11:30": - Consistent with peptic duodenitis. - See comment. . (MAT:cale; 06/16/2018) MBBoogie/06/16/2018 . 02 Comment: The duodenal mucosa reveals increased lamina propria, chronic inflammation with lymphocytes and plasma cells, changes consistent with peptic duodentitis. . The villous pattern did not reveal blunting to suggestive sprue-like changes. . (MAT:cale; 06/16/2018) . 02 Electronically signed: . Andrade Lea MD, Pathologist NPI- [id number] . 01 Gross description: . A. Received in formalin labeled "Golden Doyle, gastric biopsies," are 4 segments of cedeño soft tissue measuring 1.1 x 0.8 x 0.2 cm in aggregate dimensions and ranging from 0.3 to 0.6 cm in maximum dimension. The specimen is submitted entirely in cassette A1. . B. Received in formalin labeled "Golden Doyle, duodenal biopsies for duodenitis," are 2 segments of cedeño soft tissue measuring 0.9 x 0.2 x 0.2 cm in aggregate dimensions and ranging from 0.3 to 0.6 cm in maximum dimension. The specimen is submitted entirely in cassette B1. (TSD; 06/15/2018) [place] [address] PATHOLOGY RPT PROCEDURE Name: GOLDEN DOYLE Room: [address] IN M.R.#: [id number] Admission: 06/13/18 Date of : 65 Discharge: 06/17/18 Report #: [id number] Path Case #: [id number] TOB/TOB . 02 Pathologist provided ICD-10: K31.9, K29.80 . 02 CPT . 292206, 975492, [id number] Specimen Comment: A courtesy copy of this report has been sent to Specimen Comment: [phone], , . Specimen Comment: Report sent to ,DR JON / DR KENNY Specimen Comment: A duplicate report has been generated due to demographic updates. Performed at: [address] [facility] [address], [place] [id number] MD Sanjeev Montero MD Phone: [phone] Performed at: [address] [facility] [address] [address], [place], [place] [id number] MD Igor Damian MD Phone: [phone]
== END 2018-06-17 11:33 | disposition home or self-care (01) | DRG 377 ==
LOC: M.ERS 14:33 → M.2W 17:35 → M.TBA-ER 17:35 → M.2W 19:03 → M.3W 06-15 16:09
PROVIDERS: Internal Medicine; Nurse Practitioner Family; Personal Emergency Response Attendant; ADMIT Internal Medicine
PROC: 5A1D70Z Performance of Urinary Filtration, Intermittent, Less than 6 Hours Per Day (ICD-10-PCS; principal; 2018-06-14)
PROC: 0DB98ZX Excision of Duodenum, Via Natural or Artificial Opening Endoscopic, Diagnostic (ICD-10-PCS; 2018-06-15)
PROC: 0DB68ZX Excision of Stomach, Via Natural or Artificial Opening Endoscopic, Diagnostic (ICD-10-PCS; 2018-06-15)
PROC: 0DJD8ZZ Inspection of Lower Intestinal Tract, Via Natural or Artificial Opening Endoscopic (ICD-10-PCS; 2018-06-15)
DX: K29.61 Other gastritis with bleeding (principal); N18.6 End stage renal disease; E87.3 Alkalosis; N25.81 Secondary hyperparathyroidism of renal origin; I12.0 Hypertensive chronic kidney disease with stage 5 chronic kidney disease or end stage renal disease; K44.9 Diaphragmatic hernia without obstruction or gangrene; K26.4 Chronic or unspecified duodenal ulcer with hemorrhage; E78.5 Hyperlipidemia, unspecified; K64.8 Other hemorrhoids; K64.4 Residual hemorrhoidal skin tags; F17.200 Nicotine dependence, unspecified, uncomplicated; E87.5 Hyperkalemia; K63.5 Polyp of colon; E83.51 Hypocalcemia; E10.22 Type 1 diabetes mellitus with diabetic chronic kidney disease; E10.65 Type 1 diabetes mellitus with hyperglycemia; K21.0 Gastro-esophageal reflux disease with esophagitis; E83.39 Other disorders of phosphorus metabolism; K31.9 Disease of stomach and duodenum, unspecified; Z85.51 Personal history of malignant neoplasm of bladder; Z79.899 Other long term (current) drug therapy; Z79.82 Long term (current) use of aspirin; Z99.2 Dependence on renal dialysis; Z79.4 Long term (current) use of insulin; Z83.3 Family history of diabetes mellitus

== ENCOUNTER 2020-03-06 14:21 | Emergency (ER) | payer MEDICARE, BC ==
[~2020-03-06] VITALS: Ht 172.7 cm; Wt 69.5 kg
[~2020-03-06 14:21] MED LIST changes: +CARAFATE 1 GM TA1 G1 PO; +PANTOPRAZOLE SO40 M1 PO
[2020-03-06 16:21] LABS: ABSOLUTE BASOPHILS 0.1 thou/uL (0.0-0.2); ABSOLUTE EOSINOPHILS 0.2 thou/uL (0.0-0.7); ABSOLUTE LYMPHOCYTES 1.4 thou/uL (0.8-5.3); ABSOLUTE MONOCYTES 1.1 thou/uL (0.0-1.2); ABSOLUTE NEUTROPHILS 11.9 thou/uL (1.6-8.1); BASOPHILS 0.8 %; EOSINOPHILS 1.2 %; HEMATOCRIT 33.8 % (42.0-52.0); HEMOGLOBIN 11.5 gm/dL (14.0-18.0); LYMPHOCYTES 9.7 %; MCHC 33.9 g/dL (28.0-37.0); MCV 91.6 fL (80.0-100.0); MONOCYTES 7.7 %; MPV 8.4 fl. (7.2-11.1); NUCLEATED RBCS 0 /100WBC; PLATELET COUNT* 277 thou/uL (150-400); POLYS 80.6 %; RBC 3.69 mil/uL (4.50-6.00); WBC 14.8 thou/uL (4.0-11.0)
[2020-03-06 16:28] LABS: CALCIUM 7.6 mg/dL (8.5-10.1); CREATININE 7.2 mg/dL (0.6-1.3)
[2020-03-06 16:32] LABS: ALBUMIN 3.2 g/dL (3.4-5.0); TOTAL BILIRUBIN 0.4 mg/dL (<0.1-1.0); TOTAL PROTEIN 7.6 g/dL (6.4-8.2)
[2020-03-06] MEDS ORDERED: ZOFRAN ODT4 MG PO (18:22)
[2020-03-06 18:30] VITALS: BP 152/76
--- NOTE | 2020-03-07 10:59 | EKG ---
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 : 1965 Requested By: Eric Waldron Order Number: [id number] MD: Satish Hurtado Measurements Intervals [place] Rate: 106 P: 69 [place]: 139 QRS: -30 QRSD: 102 T: 40 QT: 353 QTc: 469 Interpretive Statements Sinus tachycardia Probable left atrial enlargement Left axis deviation Anterior infarct, old Compared to ECG 06/13/2018 15:34:26 no change Electronically Signed On 03-07-2020 10:59:45 CHANGE OF ADDRESS CLERK by Satish Hurtado [email or web address] <ELECTRONICALLY SIGNED> By: Satish Hurtado MD, FACC 03/07/20 1059 1620 1620 Satish Hurtado MD, [facility] /EPI
== END 2020-03-06 18:30 | disposition home or self-care (01) ==
LOC: M.ERS 14:21
PROVIDERS: Family Medicine
DX: R10.84 Generalized abdominal pain (principal); R11.0 Nausea; E11.9 Type 2 diabetes mellitus without complications; E78.5 Hyperlipidemia, unspecified; I10 Essential (primary) hypertension; Z79.899 Other long term (current) drug therapy; Z79.82 Long term (current) use of aspirin; Z79.4 Long term (current) use of insulin